=== PATIENT | male | born 1985 | race Caucasian/White ===

== ENCOUNTER 2020-05-30 12:24 | Outpatient (REF) | payer MEDICARE, MEDICAID, SELFPAY | END 2020-05-30 12:25 | disposition home or self-care (01) | LOC: HO.LAB 12:24 | PROVIDERS: PCP Family Medicine; Visit Provider Internal Medicine | DX: Z20.822 Contact with and (suspected) exposure to COVID-19 (principal) | CPT/HCPCS: 36415; C9803; U0003 ==

== ENCOUNTER 2021-02-07 13:30 | Outpatient (REF) | payer MEDICARE, MEDICAID, SELFPAY ==
--- NOTE | ~2021-02-07 | XR_ITS ---
EXAMINATION: XR CHEST CLINICAL INFORMATION: Acute lower respiratory infection COMPARISON: Previous chest x-ray most recent May 2018 TECHNIQUE: 2 views of the chest were obtained. FINDINGS: The cardiac and mediastinal contours are normal. There are slight increased markings in the right upper lung overlying the right anterior third and posterior fifth ribs questionable for small infiltrate. The lungs are otherwise clear. There is no pleural effusion or pneumothorax. There is curvature of the midthoracic spine to the right. XR/XR chest 2V IMPRESSION: Question small right upper lobe infiltrate.
== END 2021-02-07 13:31 | disposition home or self-care (01) ==
LOC: HO.XRAY 13:30
PROVIDERS: Absent Provider Family Medicine; PCP Family Medicine; Visit Provider Emergency Medicine
DX: J22 Unspecified acute lower respiratory infection (principal)
CPT/HCPCS: 71046

== ENCOUNTER 2021-08-15 11:25 | Outpatient (REF) | payer MEDICARE, MEDICAID, SELFPAY ==
--- NOTE | ~2021-08-15 | CT_ITS ---
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 COMPARISON: None TECHNIQUE: Following the intravenous administration of 60 mL of Omnipaque 350 intravenous contrast, helical imaging was performed in the axial plane with generation of coronal and sagittal reformatted images. This CT examination was performed using dose optimization techniques as appropriate, variously including the following: *Automated exposure control *Adjustment of mA and/or kV according to patient size (this includes techniques or standardized protocols for targeted exams where dose is matched to indication/reason for exam; i.e. extremities or head) *Use of iterative reconstruction technique DLP: 1068 mGy-cm FINDINGS: SKULL BASE: The bony skull base appears grossly intact. The visualized calvarium is intact. The mastoids and middle ear cavities are unopacified. There is some mucosal thickening in the ethmoid complex anteriorly and right frontal recess. Limited assessment of the visualized intracranial contents demonstrates no acute process within the limitations of the exam. The visualized orbital soft tissue structures appear grossly unremarkable. SUPRAHYOID NECK: The nasopharynx, bowling floor desk clerk and parapharyngeal spaces are symmetric and appear within normal limits. The oropharynx is smoothly contoured. Retropharynx appears normal. There is a 2 mm calculus within the left parotid gland. Otherwise the parotid glands are bilaterally symmetric in size. The left parotid gland hyperenhances to a mild degree compared to the right which could reflect some degree of sialoadenitis. No stones are identified within Stensen's ducts. There is mild subcutaneous soft tissue stranding lateral to the left parotid gland suggesting some inflammatory changes in this region. Right parotid gland attenuates normally. Submandibular glands are normal in morphology and enhance normally bilaterally. The visualized oral tongue, base of the tongue and floor of the mouth structures appear symmetric and intact. There are small, nonenlarged submandibular space lymph nodes, right more than left. Very small submental lymph nodes are noted. Small, nonenlarged bilateral IJ chain lymph nodes are also noted. Vallecula and epiglottis appear normal. Note that there is thickening and irregularity of the platysma on the left, which could be related to inflammation. INFRAHYOID NECK: The hypopharynx and larynx appear normal. Clips are seen in the thyroid bed consistent with a previous thyroidectomy. Multiple small, nonenlarged bilateral level VA and level IIIB lymph nodes are noted, with a few level IV lymph nodes bilaterally. There is a single enlarged, 1.5 x 0.9 cm level IV lymph node on the left in a retroclavicular position in addition to a 1.1 x 0.65 lymph node in the same region. UPPER CHEST: Visualized lung parenchyma shows no acute findings. Visualized mediastinum is within normal limits. Probably some residual thymic tissue noted in the anterior mediastinal fat. SKELETAL: Skeletal structures appear intact. There is mild upper cervical levocurvature. OTHER COMMENTS: None. CT/CT soft tissue neck w con IMPRESSION: 1. Findings involving the left parotid gland suggest a mild degree of sialoadenitis. A small calculus is seen within the gland and there is no evidence for sialectasia or sialodocholithiasis. 2. A few mildly prominent lower cervical lymph nodes are noted as described above at level IV, which could be postinflammatory or infectious. Cannot exclude neoplastic disease. 3. Recommend followup CT of the neck with contrast at a clinically appropriate interval to reassess. 4. Evidence of previous thyroidectomy.
== END 2021-08-15 11:26 | disposition home or self-care (01) ==
LOC: HO.CT 11:25
PROVIDERS: PCP Family Medicine; Visit Provider Emergency Medicine
DX: K11.1 Hypertrophy of salivary gland (principal)
CPT/HCPCS: 70491

== ENCOUNTER 2023-04-04 10:32 | Outpatient (REF) | payer MEDICARE, MEDICAID, SELFPAY ==
[2023-04-04 11:12] LABS: MANUAL DIFF FLAG NO
[2023-04-04 11:42] LABS: Basophils Percent Auto 0.6 % (0-2); Eosinophils Absolute Auto 0.2 X10*3/uL (0.0-0.4); Eosinophils Percent Auto 4.3 % (0-4); Hematocrit 45.7 % (42.0-52.0); Hemoglobin 15.4 g/dl (14.0-18.0); Imm Gran Abs Auto 0.02 X10*3/uL (0.00-0.03); Imm Gran Pct Auto 0.4 % (0.0-0.4); Lymphocytes Absolute Auto 1.8 X10*3/uL (1.2-4.9); Lymphocytes Percent Auto 36.2 % (20-40); Mean Corpuscular HGB Conc 33.7 g/dl (31.0-36.0); Mean Corpuscular Hemoglobin 30.7 pg (27.0-33.0); Mean Platelet Volume 12.3 fL (9.4-12.4); Monocytes Absolute Auto 0.3 X10*3/uL (0.1-1.2); Monocytes Percent Auto 6.7 % (2-11); Neutrophils Absolute Auto 2.6 x10*3/uL (2.0-8.3); Neutrophils Percent Auto 51.8 % (45-73); Platelet Count 154 X10*3/uL (160-400); Red Blood Count 5.02 X10*6/uL (4.60-5.80); Red Cell Distribution Width 12.4 % (11.0-16.0); White Blood Count 5.1 X10*3/uL (4.8-10.8)
[2023-04-04 12:30] LABS: Anion Gap 13 (12-20); Blood Urea Nitrogen 11 mg/dL (9-16); Calcium 9.4 mg/dL (8.4-10.2); Carbon Dioxide 24 mmol/L (22-29); Chloride 108 mmol/L (96-108); Cholesterol 142 mg/dL (<200); Estimated Glomerular Filt Rate > 60; Glucose Random 94 mg/dL (60-115); HDL Cholesterol 30 mg/dL (>40); LDL Cholesterol Calculated 90 mg/dL (<100); Magnesium 2.3 mg/dL (1.6-2.6); Potassium 3.8 mmol/L (3.3-5.1); Sodium 141 mmol/L (135-145); TSH reflex Free T4 0.13 uIU/mL (0.32-4.0); Triglycerides 112 mg/dL (<150)
[2023-04-04 13:04] LABS: Free T4 (Free Thyroxine) 1.24 ng/dL (0.71-1.85)
== END 2023-04-04 10:33 | disposition home or self-care (01) ==
LOC: HO.HHCL 10:32
PROVIDERS: Visit Provider Family Medicine
DX: R00.0 Tachycardia, unspecified (principal); T79.6XXS Traumatic ischemia of muscle, sequela; Z13.220 Encounter for screening for lipoid disorders
CPT/HCPCS: 36415; 80048; 80061; 82550; 83735; 84439; 84443; 85025

== ENCOUNTER 2023-04-15 11:35 | Outpatient (REF) | payer MEDICARE, MEDICAID, SELFPAY ==
[2023-04-15 13:34] LABS: MANUAL DIFF FLAG NO
[2023-04-15 13:57] LABS: Basophils Absolute Auto 0.1 X10*3/uL (0.0-0.2); Basophils Percent Auto 1.2 % (0-2); Eosinophils Absolute Auto 0.2 X10*3/uL (0.0-0.4); Eosinophils Percent Auto 2.5 % (0-4); Hematocrit 45.3 % (42.0-52.0); Hemoglobin 15.2 g/dl (14.0-18.0); Imm Gran Abs Auto 0.02 X10*3/uL (0.00-0.03); Imm Gran Pct Auto 0.3 % (0.0-0.4); Lymphocytes Absolute Auto 2.1 X10*3/uL (1.2-4.9); Lymphocytes Percent Auto 34.6 % (20-40); Mean Corpuscular HGB Conc 33.6 g/dl (31.0-36.0); Mean Corpuscular Hemoglobin 30.1 pg (27.0-33.0); Mean Corpuscular Volume 89.7 fL (80.0-98.0); Mean Platelet Volume 10.7 fL (9.4-12.4); Monocytes Absolute Auto 0.5 X10*3/uL (0.1-1.2); Monocytes Percent Auto 8.4 % (2-11); Neutrophils Absolute Auto 3.2 x10*3/uL (2.0-8.3); Platelet Count 211 X10*3/uL (160-400); Red Blood Count 5.05 X10*6/uL (4.60-5.80); Red Cell Distribution Width 12.1 % (11.0-16.0)
[2023-04-15 14:59] LABS: TSH reflex Free T4 0.04 uIU/mL (0.32-4.0)
[2023-04-15 15:32] LABS: Free T4 (Free Thyroxine) 1.37 ng/dL (0.71-1.85)
== END 2023-04-15 11:36 | disposition home or self-care (01) ==
LOC: HO.HHCL 11:35
PROVIDERS: Nurse Practitioner Primary Care; Visit Provider Family Medicine
DX: R00.0 Tachycardia, unspecified (principal); E03.9 Hypothyroidism, unspecified; D69.6 Thrombocytopenia, unspecified
CPT/HCPCS: 36415; 84439; 84443; 85025

== ENCOUNTER 2023-09-10 18:15 | Outpatient (REF) | payer MEDICARE, MEDICAID, SELFPAY | END 2023-09-10 18:16 | disposition home or self-care (01) | LOC: HO.HHCLNP 18:15 | PROVIDERS: Visit Provider Internal Medicine | DX: J02.9 Acute pharyngitis, unspecified (principal) | CPT/HCPCS: 87070 ==

== ENCOUNTER 2024-11-10 09:39 | Outpatient (REF) | payer MEDICARE, MEDICAID, SELFPAY | END 2024-11-10 09:40 | disposition home or self-care (01) | LOC: HO.HHCL 09:39 | PROVIDERS: PCP Family Medicine; Referring Provider Psychiatry & Neurology Neurology; Visit Provider Family Medicine | DX: R56.9 Unspecified convulsions (principal) | CPT/HCPCS: 36415; 80164 ==

== ENCOUNTER 2024-12-31 15:53 | Outpatient (REF) | payer MEDICARE, MEDICAID, SELFPAY ==
[2024-12-31 18:38] LABS: Alanine Aminotransferase 15 U/L (0-40); Albumin Level 4.4 g/dL (3.5-5.0); Alkaline Phosphatase 112 U/L (39-117); Anion Gap 15 (12-20); Aspartate Amino Transferase 32 U/L (5-37); Blood Urea Nitrogen 13 mg/dL (9-16); Calcium 8.9 mg/dL (8.4-10.2); Carbon Dioxide 24 mmol/L (22-29); Chloride 103 mmol/L (96-108); Estimated Glomerular Filt Rate > 60; Potassium 3.5 mmol/L (3.3-5.1); Sodium 138 mmol/L (135-145); Total Protein 7.5 g/dL (6.5-8.0)
== END 2024-12-31 15:54 | disposition home or self-care (01) ==
LOC: HO.HHCL 15:53
PROVIDERS: PCP Family Medicine; Visit Provider Nurse Practitioner Family
DX: R56.9 Unspecified convulsions (principal)
CPT/HCPCS: 36415; 80048; 80076; 80164